=== PATIENT | female | born 1980 | race Caucasian/White ===

== ENCOUNTER 2016-11-08 12:57 | Emergency (ER) ==
[2016-11-08 13:05] VITALS: BP 169/94; TEMP 97.9; BMI 20.9
[2016-11-08] MEDS ORDERED: MORPHINE 4 MG/ML SYRINGE IM STA (13:11)
[2016-11-08] MEDS ORDERED: TORADOL IM STA (13:11)
--- NOTE | 2016-11-08 13:34 | ED.PDOC ---
General ED Provider: Dr. ESTELLE LOZA-ER Chief Complaint: Hand Pain/Injury Stated Complaint: my hands are numb and tingling Time Seen by Physician: 13:00 Mode of Arrival: Walk-In Information Source: Patient Exam Limitations: No limitations Nursing and Triage Documentation Reviewed and Agree: Yes Musculoskeletal Complaint Exam - Hand/Wrist Complaint/Exam Location of Pain: Reports: Hand, Wrist Mechanism of Injury: Reports: No known trauma Onset/Duration: 3 days Symptoms Are: Still present Onset of Pain: Reports: Immediate Initial Severity: Mild Current Severity: Moderate Location: Reports: Discrete (hands) Character: Reports: Aching, Throbbing, Burning Alleviating: Reports: None Aggravating: Reports: Movement Associated Signs and Symptoms: Reports: Tingling. Denies: Swelling, Redness, Bruising, Fever, Weakness, Numbness Hand/Wrist Findings: Present: Tinel's Sign, Phalen's Sign Compartment Syndrome Risk Factors: Present: Pain, Paresthesias. Absent: Paralysis, Pallor, Pulselessness Differential Diagnoses: Carpal Tunnel Syndrome, Tenosynovitis Review of Systems - Review Of Systems Constitutional: Reports: No symptoms Eyes: Reports: No symptoms Ears, Nose, Mouth, Throat: Reports: No symptoms Respiratory: Reports: No symptoms Cardiac: Reports: No symptoms GI: Reports: No symptoms : Reports: No symptoms Musculoskeletal: Reports: No symptoms Skin: Reports: No symptoms Neurological: Reports: Numbness Endocrine: Reports: No symptoms Hematologic/Lymphatic: Reports: No symptoms All Other Systems: Reviewed and Negative Past Medical History - Past Medical History Endocrine: Reports: Unknown Cardiovascular: Reports: Unknown Respiratory: Reports: Unknown Hematological: Reports: Unknown Gastrointestinal: Reports: Unknown Genitourinary: Reports: Unknown Neuro/Psych: Reports: Unknown Musculoskeletal: Reports: Unknown Cancer: Reports: Unknown Last Menstrual Period: hysterectomy - Surgical History General Surgical History: Reports: Unknown - Family History Family History: Reports: Unknown - Social History Smoking Status: Current every day smoker, Light tobacco smoker Hx Substance Use: No Alcohol Screening: None Lives: With family Physical Exam - Physical Exam Appearance: Well-appearing, No pain distress, Well-nourished Pain Distress: Moderate Eyes: NICOLASA, EOMI, Conjunctiva clear ENT: Ears normal, Nose normal, Oropharynx normal Neck: Supple Respiratory: Airway patent Cardiovascular: RRR, Pulses normal, No rub, No murmur GI/: Soft, Nontender, No masses, Bowel sounds normal, No Organomegaly Musculoskeletal: Normal strength Skin: Warm, Dry, Normal color Neurological: Sensation intact, Motor intact, Reflexes intact, Cranial nerves intact, Alert, Oriented Psychiatric: Affect appropriate, Mood appropriate Re-Evaluation - Re-Evaluation Time of Re-Evaluation: 13:53 Status: Improved Vital Signs Stable: Yes Pain Level: 0 Appearance: NAD Lungs: Clear Skin: Warm and Dry Neuro: Alert and Oriented X3 CV: RRR Critical Care Note - Critical Care Note Total Time (mins): 0 Course - Course Orders, Labs, Meds: Orders Category Date Time Status Splint [ED SPLINT APPLICATION] .ONCE EMERGENCY 11/08/16 13:52 Ordered Ketorolac Tromethamine [Toradol] MEDS 11/08/16 13:11 Discontinued 60 mg IM ONCE STA Morphine Sulfate [Morphine 4 mg/ml Syringe] MEDS 11/08/16 13:11 Discontinued 4 mg IM ONCE STA Medications Discontinued Medications Generic Name Dose Route Start Last Admin Trade Name Freq PRN Reason Stop Dose Admin Ketorolac Tromethamine 60 mg 11/08/16 13:11 11/08/16 13:20 Toradol IM 11/08/16 13:12 60 mg ONCE STA Administration Morphine Sulfate 4 mg 11/08/16 13:11 11/08/16 13:19 Morphine 4 Mg/Ml Syringe IM 11/08/16 13:12 4 mg ONCE STA Administration Vital Signs: Temp Pulse Resp BP Pulse Ox 11/08/16 12:58 97.9 F 120 H 20 169/94 H 97 Departure - Departure Time of Disposition: 13:53 Disposition: HOME SELF-CARE Discharge Problem: Carpal tunnel syndrome Qualifiers: Laterality: bilateral Qualifier Code: (G56.03) Carpal tunnel syndrome, bilateral upper limbs Instructions: Paresthesia (ED) Condition: Good Pt referred to PMD for follow-up: Yes Additional Instructions: stay in splints--toradol 10mg qid prn pain#16--talk to your pcp about referrl Allergies/Adverse Reactions: Allergies No Known Allergies Allergy (Verified 11/08/16 13:04) Home Medications: Ambulatory Orders 1 [No Reported Medications] 08/23/13 Disposition Discussed With: Patient
== END 2016-11-08 14:30 | disposition home or self-care (01) ==
LOC: ED 12:57
DX: G56.03 Carpal tunnel syndrome, bilateral upper limbs (principal)
CPT/HCPCS: 96372; 99283

== ENCOUNTER 2017-09-30 20:24 | Emergency (ER) ==
[2017-09-30 20:26] VITALS: BP 121/79; TEMP 97.4; BMI 22.6
[2017-09-30] MEDS ORDERED: TORADOL IM STA (21:01)
[2017-09-30] MEDS ORDERED: AUGMENTIN 500-125 MG TAB PO STA (21:01)
--- NOTE | 2017-09-30 21:04 | ED.PDOC ---
General ED Provider: Dr. NGHIA RODRIGUEZ Chief Complaint: Earache Stated Complaint: LEFT EAR PAIN. Time Seen by Physician: 21:02 Mode of Arrival: Walk-In Information Source: Patient Nursing and Triage Documentation Reviewed and Agree: Yes EENT Complaint Exam - Ear Complaint/Exam Symptoms Are: Still present Timing: Constant Initial Severity: Moderate Current Severity: Moderate Character: Reports: Sharp pain, Dull pain Aggravating: Reports: None Alleviating: Reports: None Associated Signs and Symptoms: Denies: Ear trauma, Ear swelling, Discharge, Fever, Hearing loss, Bleeding, Sore throat, Headache, URI symptoms, Foreign body sensation, Rash, Pain to external ear, Pain to external face Related History: Reports: Similar Episode Ear Surgical History: None Vesicles to External Pinna: No Vesicles to Tragus: No TMJ Tenderness: None Mastoid Tenderness: None Tragal Tenderness: Left Material in Canal: Present: Cerumen Differential Diagnoses: Otitis Media Review of Systems - Review Of Systems Constitutional: Reports: No symptoms Eyes: Reports: No symptoms Ears, Nose, Mouth, Throat: Reports: Ear pain Respiratory: Reports: No symptoms Cardiac: Reports: No symptoms GI: Reports: No symptoms : Reports: No symptoms Musculoskeletal: Reports: No symptoms Skin: Reports: No symptoms Neurological: Reports: No symptoms Endocrine: Reports: No symptoms Hematologic/Lymphatic: Reports: No symptoms All Other Systems: Reviewed and Negative Past Medical History - Past Medical History Previously Healthy: Yes Endocrine: Reports: Unknown Cardiovascular: Reports: Unknown Respiratory: Reports: Unknown Hematological: Reports: Unknown Gastrointestinal: Reports: Unknown Genitourinary: Reports: Unknown Neuro/Psych: Reports: Unknown Musculoskeletal: Reports: Unknown Cancer: Reports: Unknown Last Menstrual Period: none - Surgical History General Surgical History: Reports: Unknown - Family History Family History: Reports: Unknown - Social History Smoking Status: Current every day smoker, Light tobacco smoker Smoking Cessation Counseling Time: > 3 min - 10 min Hx Substance Use: No Alcohol Screening: None Physical Exam - Physical Exam Appearance: Well-appearing, No pain distress, Well-nourished Eyes: NICOLASA, EOMI, Conjunctiva clear ENT: Ears normal, Nose normal, Oropharynx normal Respiratory: Airway patent, Breath sounds clear, Breath sounds equal, Respirations nonlabored Cardiovascular: RRR, Pulses normal, No rub, No murmur GI/: Soft, Nontender, No masses, Bowel sounds normal, No Organomegaly Musculoskeletal: Normal strength, ROM intact, No edema, No calf tenderness Skin: Warm, Dry, Normal color Neurological: Sensation intact, Motor intact, Reflexes intact, Cranial nerves intact, Alert, Oriented Psychiatric: Affect appropriate, Mood appropriate Critical Care Note - Critical Care Note Total Time (mins): 0 Course - Course Orders, Labs, Meds: Orders Category Date Time Status Amoxicillin/Potassium Clav [Augmentin 500-125 mg Tab] MEDS 09/30/17 21:01 Stat 1 tab PO ONCE STA Ketorolac Tromethamine [Toradol] MEDS 09/30/17 21:01 Stat 30 mg IM ONCE STA Vital Signs: Temp Pulse Resp BP Pulse Ox 09/30/17 20:24 97.4 F L 94 H 18 121/79 98 Departure - Departure Time of Disposition: 21:06 Disposition: HOME SELF-CARE Discharge Problem: Otitis media Qualifiers: Otitis media type: serous Chronicity: acute Laterality: left Recurrence: not specified as recurrent Qualified Code(s): H65.02 - Acute serous otitis media, left ear Instructions: Ear Infection (ED) Condition: Good Pt referred to PMD for follow-up: No Additional Instructions: Take medication with food. Increase hydration. Prescriptions: Amoxicillin/Potassium Clav [Augmentin 500-125 mg Tab] 1 tab PO Q12HR #20 tablet Allergies/Adverse Reactions: Allergies No Known Allergies Allergy (Verified 09/30/17 20:26) Home Medications: Ambulatory Orders Amoxicillin/Potassium Clav [Augmentin 500-125 mg Tab] 1 tab PO Q12HR #20 tablet 09/30/17 Disposition Discussed With: Patient
== END 2017-09-30 21:45 | disposition home or self-care (01) ==
LOC: ED 20:24
DX: H65.02 Acute serous otitis media, left ear (principal); F17.210 Nicotine dependence, cigarettes, uncomplicated
CPT/HCPCS: 96372; 99283

== ENCOUNTER 2019-03-18 13:21 | Emergency (ER) ==
[2019-03-18 13:24] VITALS: BP 137/89; TEMP 98.6; BMI 21.0
[2019-03-18] MEDS ORDERED: LIDOCAINE HCL 1% SDV IM STA (13:39)
[2019-03-18] MEDS ORDERED: ROCEPHIN IM STA (13:39)
[2019-03-18] MEDS ORDERED: MORPHINE 4 MG/ML SYRINGE IM STA (13:40)
[2019-03-18] MEDS ORDERED: ZOFRAN 4 MG/2 ML IM STA (13:40)
--- NOTE | 2019-03-18 13:43 | ED.PDOC ---
General ED Provider: Dr. CHELSI MAYORGA Chief Complaint: Tooth Problem Stated Complaint: dental pain Time Seen by Physician: 13:30 Mode of Arrival: Walk-In Information Source: Patient Exam Limitations: No limitations Nursing and Triage Documentation Reviewed and Agree: Yes Does patient meet sepsis criteria?: No If yes, has appropriate treatment been initiated?: No System Inflammatory Response Syndrome: Not Applicable Sepsis Protocol: For patient's 13 years and over: Temp is 96.8 and below OR 101 and greater Pulse >90 BPM Resp >20/minute Acutely Altered Mental Status Are patient's symptoms suggestive of a new infection, such as: -Pneumonia -Skin, Soft Tissue -Endocarditis -UTI -Bone, Joint Infection -Implantable Device -Acute Abdominal Infection -Wound Infection -Meningitis -Blood Stream Catheter Infection -Unknown EENT Complaint Exam - Dental/Oral Complaint/Exam Mechanism of Injury: No known trauma Onset/Duration: 3 days Symptoms Are: Still present Timing: Intermittent Initial Severity: None Current Severity: Severe Character: Reports: Throbbing Aggravating: Reports: None Alleviating: Reports: None Associated Signs and Symptoms: Reports: Swelling (left jaw ) Cardiac Risk Factors: Reports: None Dental/Oral Surgical History: Reports: None Tooth Findings: Present: Gross caries, Dental fracture Cervical Lymphadenopathy Present: No Facial Swelling Present: Yes (angle of the ja left) Oropharynx Findings: Absent: Clots, Active bleeding Septal Hematoma: No Foreign Body Present: No Dysphagia Present: No Drooling Present: No Asymmetrical Tonsillar Swelling Present: No Uvula Midline: Yes Alida-tonsillar Fluctuence: No Trismus Present: No Palatal Petechiae Present: No Scarlatinaform Rash Present: No Lesions: Absent: Lip, Gums, Tongue, Buccal Mucosa, Pharynx Exanthem: Absent: Lip, Gums, Tongue, Buccal Mucosa, Pharynx Vesicles: Absent: Lip, Gums, Tongue, Buccal Mucosa, Pharynx Teeth Picture: 1 - broken Differential Diagnoses: Dental Caries, Fractured Tooth Review of Systems - Review Of Systems Constitutional: Reports: No symptoms Eyes: Reports: No symptoms Ears, Nose, Mouth, Throat: Reports: No symptoms Respiratory: Reports: No symptoms Cardiac: Reports: No symptoms GI: Reports: No symptoms : Reports: No symptoms Musculoskeletal: Reports: No symptoms Skin: Reports: No symptoms Neurological: Reports: No symptoms Endocrine: Reports: No symptoms Hematologic/Lymphatic: Reports: No symptoms All Other Systems: Reviewed and Negative Past Medical History - Past Medical History Previously Healthy: Yes Endocrine: Reports: Unknown Cardiovascular: Reports: Unknown Respiratory: Reports: Unknown Hematological: Reports: Unknown Gastrointestinal: Reports: Unknown Genitourinary: Reports: Unknown Neuro/Psych: Reports: Unknown Musculoskeletal: Reports: Unknown Cancer: Reports: Unknown Last Menstrual Period: none - Surgical History General Surgical History: Reports: Unknown - Family History Family History: Reports: Unknown - Social History Smoking Status: Current every day smoker, Light tobacco smoker Hx Substance Use: No Alcohol Screening: None Physical Exam - Physical Exam Appearance: Well-appearing, No pain distress, Well-nourished Eyes: NICOLASA, EOMI, Conjunctiva clear ENT: Ears normal, Nose normal, Oropharynx normal Respiratory: Airway patent, Breath sounds clear, Breath sounds equal, Respirations nonlabored Cardiovascular: RRR, Pulses normal, No rub, No murmur GI/: Soft, Nontender, No masses, Bowel sounds normal, No Organomegaly Musculoskeletal: Normal strength, ROM intact, No edema, No calf tenderness Skin: Warm, Dry, Normal color Neurological: Sensation intact, Motor intact, Reflexes intact, Cranial nerves intact, Alert, Oriented Psychiatric: Affect appropriate, Mood appropriate Critical Care Note - Critical Care Note Total Time (mins): 0 Course - Course Orders, Labs, Meds: Orders Category Date Time Status Ceftriaxone Sodium [Rocephin] MEDS 03/18/19 13:39 Stat 1 gm IM ONCE STA Lidocaine HCl/Pf [Lidocaine HCl 1% Sdv] MEDS 03/18/19 13:39 Stat 2.1 ml IM ONCE STA Morphine Sulfate [Morphine 4 mg/ml Syringe] MEDS 03/18/19 13:40 Stat 4 mg IM ONCE STA Ondansetron HCl/Pf [Zofran 4 mg/2 ml] MEDS 03/18/19 13:40 Stat 4 mg IM ONCE STA Medications Discontinued Medications Generic Name Dose Route Start Last Admin Trade Name Freq PRN Reason Stop Dose Admin Ceftriaxone Sodium 1 gm 03/18/19 13:39 Rocephin IM 03/18/19 13:40 ONCE STA Lidocaine HCl 2.1 ml 03/18/19 13:39 Lidocaine Hcl 1% Sdv IM 03/18/19 13:40 ONCE STA Morphine Sulfate 4 mg 03/18/19 13:40 Morphine 4 Mg/Ml Syringe IM 03/18/19 13:41 ONCE STA Ondansetron HCl 4 mg 03/18/19 13:40 Zofran 4 Mg/2 Ml IM 03/18/19 13:41 ONCE STA Vital Signs: Temp Pulse Resp BP Pulse Ox 03/18/19 13:21 98.6 F 120 H 20 137/89 96 Departure - Departure Time of Disposition: 13:43 Disposition: HOME SELF-CARE Discharge Problem: Toothache Instructions: Toothache (ED) Condition: Good Pt referred to PMD for follow-up: Yes IPMP verified?: No Additional Instructions: Please call your Family Physician as soon as possible to schedule a follow-up appointment. Prescriptions: Hydrocodone Bit/Acetaminophen [Camby 10-325] 1 each PO Q6HR #14 tablet Amoxicillin 500 mg PO Q8HR #21 tablet Allergies/Adverse Reactions: Allergies No Known Allergies Allergy (Verified 03/18/19 13:25) Home Medications: Ambulatory Orders Amoxicillin 500 mg PO Q8HR #21 tablet 03/18/19 Hydrocodone Bit/Acetaminophen [Camby 10-325] 1 each PO Q6HR #14 tablet 03/18/19
== END 2019-03-18 14:35 | disposition home or self-care (01) ==
LOC: ED 13:21
DX: K08.89 Other specified disorders of teeth and supporting structures (principal); K02.7 Dental root caries; S02.5XXA Fracture of tooth (traumatic), initial encounter for closed fracture; F17.210 Nicotine dependence, cigarettes, uncomplicated
CPT/HCPCS: 96372; 99282